=== PATIENT | female | born 1950 | race Caucasian/White ===

== ENCOUNTER 2016-11-19 16:38 | Observation (INO) | payer OTHER ==
[~2016-11-19] VITALS: Ht 157.5 cm; Wt 49.0 kg
[2016-11-19 17:44] LABS: HEMOGLOBIN 14.4 gm/dl (12.3-15.3); RED BLOOD COUNT 4.94 M/UL (4.00-5.10); WHITE BLOOD COUNT 12.8 K/UL (4.5-11.0)
[2016-11-19 18:05] LABS: BUN/CREATININE RATIO 15 (0-10)
[2016-11-20] MEDS ORDERED: HYDRALAZINE HCL25 MG PO (06:51)
[2016-11-20] MEDS ORDERED: ACID CONTROLLER20 MG PO (06:51)
[2016-11-20] MEDS ORDERED: LEVOTHYROXINE112 MCG PO (06:52)
[2016-11-20] MEDS ORDERED: LISINOPRIL20 MG PO (06:52)
[2016-11-20] MEDS ORDERED: PRAVASTATIN SOD40 MG PO (06:53)
[2016-11-20] MEDS ORDERED: SPIRIVA HANDIH18 MCG INH (06:53)
[2016-11-20] MEDS ORDERED: VENTOLIN/PROVE0.5 ML INH (06:54)
[2016-11-20] MEDS ORDERED: SYMBICORT 80-41 INHA INH (06:54)
[2016-11-20] MEDS ORDERED: VITAMIN D50000 UNIT PO (06:56)
[2016-11-20] MEDS ORDERED: LEVAQUIN750 MG PO (06:56)
[2016-11-21 05:54] LABS: HEMOGLOBIN 13.2 gm/dl (12.3-15.3); RED BLOOD COUNT 4.64 M/UL (4.00-5.10)
[2016-11-21 05:55] LABS: WHITE BLOOD COUNT 5.1 K/UL (4.5-11.0)
[2016-11-21 06:13] LABS: BUN/CREATININE RATIO 26 (0-10)
[2016-11-21] MEDS ORDERED: MEDROL DOSEPAK 24 MG PO (13:43)
[2016-11-21] MEDS ORDERED: SPIRIVA18 MCG INH (13:46)
[2016-11-21] MEDS ORDERED: SYMBICORT 160-1 INHA INH (13:47)
[2016-11-21] MEDS ORDERED: IPRAT-ALBUT 0.5-3 ML INH (15:22)
[2016-11-21] MEDS ORDERED: VENTOLIN HFA 66.7 GM INH (15:24)
== END 2016-11-21 15:54 | disposition home or self-care (01) ==
LOC: ER1 16:38 → ZEROF 20:45 → M/S 20:45 → ZEROF 20:45 → M/S 11-20 08:58
PROVIDERS: Emergency Medicine; ADMIT Internal Medicine
DX: J44.1 Chronic obstructive pulmonary disease with (acute) exacerbation (principal); J96.12 Chronic respiratory failure with hypercapnia; J96.11 Chronic respiratory failure with hypoxia; I10 Essential (primary) hypertension; K21.9 Gastro-esophageal reflux disease without esophagitis; E03.9 Hypothyroidism, unspecified; Z87.891 Personal history of nicotine dependence; Z80.49 Family history of malignant neoplasm of other genital organs; Z79.899 Other long term (current) drug therapy; Z90.710 Acquired absence of both cervix and uterus; Z99.81 Dependence on supplemental oxygen
CPT/HCPCS: 36415; 36600; 71010; 80048; 80053; 81001; 82803; 83735; 84443; 84484; 85025; 85027; 85379; 87040; 87086; 93005; 94640; 94660; 94664; 96365; 96372; 96375; 96376; 99285; G0378; J1650; J1956; J2920; Q9963

== ENCOUNTER → 2021-05-23 | Outpatient (CLI) | payer MEDICARE, OTHER ==
[~2021-05-23] MED LIST: ACID CONTROLLER20 MG PO; HYDRALAZINE HCL25 MG PO; IPRAT-ALBUT 0.5-3 ML INH; LEVAQUIN750 MG PO; LEVOTHYROXINE112 MCG PO; LISINOPRIL20 MG PO; MEDROL DOSEPAK 24 MG PO; PRAVASTATIN SOD40 MG PO; SPIRIVA HANDIH18 MCG INH; SPIRIVA18 MCG INH; SYMBICORT 160-1 INHA INH; SYMBICORT 80-41 INHA INH; VENTOLIN HFA 66.7 GM INH; VENTOLIN/PROVE0.5 ML INH; VITAMIN D50000 UNIT PO
== END ==
LOC: RAD 09:00
DX: R13.10 Dysphagia, unspecified (principal)
CPT/HCPCS: 74230; 92611-GN

== ENCOUNTER 2021-05-26 17:24 | Emergency (ER) | payer MEDICARE, OTHER | END 2021-05-26 20:06 | disposition left against medical advice (07) | LOC: ER1 17:24 | DX: R13.10 Dysphagia, unspecified (principal); E78.5 Hyperlipidemia, unspecified; I10 Essential (primary) hypertension; J44.9 Chronic obstructive pulmonary disease, unspecified; E03.9 Hypothyroidism, unspecified; Z88.1 Allergy status to other antibiotic agents | CPT/HCPCS: 99282 ==